=== PATIENT | male | born 1960 | race African-American/Black ===

== ENCOUNTER 2017-10-25 16:08 | Emergency (ER) | payer SELFPAY ==
[~2017-10-25] VITALS: Ht 177.8 cm; Wt 99.8 kg
[2017-10-25] MEDS ORDERED: LEVETIRACETAM INJ 1,000 MG in D5W 5% 100 ML IV ONE (17:00)
[2017-10-25] MEDS ORDERED: LORazepam 2MG/ML-1ML VIAL IV ONE (17:15)
[2017-10-25 18:07] LABS: Basophils # (auto) 0.1 uL; Basophils % (auto) 1.8 % (0.0-2.0); Eosinophils # (auto) 0.2 uL; Eosinophils % (auto) 3.6 % (0.0-7.0); Hematocrit 28.6 % (41.0-53.0); Hemoglobin 9.3 g/dL (13.5-17.5); Lymphocytes # (auto) 0.7 uL; Lymphocytes % (auto) 12.9 % (10.0-50.0); Mean Corpuscular Hgb Conc. 32.5 g/dL (32.0-36.0); Mean Corpuscular Volume 101.5 fL (80.0-100.0); Monocytes # (auto) 0.6 uL; Monocytes % (auto) 10.7 % (0.0-12.0); Neutrophils # (auto) 4.1 uL; Nucleated Red Blood Cells % 0.1 %; Platelet Count (auto) 150 10^3/uL (140-450); Red Blood Cells 2.82 10^6/uL (4.5-5.90); Red Cell Distribution Width 14.6 % (11.8-14.3); White Blood Cell 5.7 10^3/uL (4.4-10.8)
[2017-10-25] MEDS ORDERED: LABETALOL HCL 5 MG/ML ML 20ML VIAL IV ONE (18:15)
[2017-10-25 18:22] LABS: Albumin 3.3 g/dL (3.4-5.0); BUN/Creatinine Ratio 9.2; Bilirubin, Total 0.7 mg/dL (0.2-1.0); Calcium 8.5 mg/dL (8.5-10.1); Total Protein 8.4 g/dL (6.4-8.2)
[2017-10-25] MEDS ORDERED: LEVETIRACETAM 500 MG TAB PO ONE (20:00)
[2017-10-25 20:19] VITALS: BP 182/110
== END 2017-10-25 20:27 | disposition home or self-care (01) ==
LOC: EDBD 16:08 → ER 16:08
DX: G40.89 Other seizures (principal); I16.0 Hypertensive urgency; E11.9 Type 2 diabetes mellitus without complications; E78.00 Pure hypercholesterolemia, unspecified; M10.9 Gout, unspecified; F17.210 Nicotine dependence, cigarettes, uncomplicated; F12.10 Cannabis abuse, uncomplicated
CPT/HCPCS: 36415; 80053; 80320; 85025; 93005; 94761; 96374; 96375; 99285; J2060; J7060